=== PATIENT | female | born 1990 | race Caucasian/White ===

== ENCOUNTER 2020-07-31 08:01 | Outpatient (CLI) | payer BC ==
[2020-07-31 17:54] LABS: SARS-CoV-2 PCR by NAA Not Detected (NotDetected)
== END 2020-07-31 08:02 | disposition home or self-care (01) ==
LOC: CSHLAB 08:01
PROVIDERS: ATTEND Obstetrics & Gynecology
DX: Z20.822 Contact with and (suspected) exposure to COVID-19 (principal)
CPT/HCPCS: 87635; U0003; U0005

== ENCOUNTER 2024-03-10 01:26 | Day surgery (SDC) | payer BC ==
[2024-03-10 01:53] VITALS: BMI 30.1
[2024-03-10] MEDS ORDERED: hydrALAZINE 20 MG/ML VIAL SLOW IVP PRN (02:25)
[2024-03-10] MEDS: Morphine 4 MG/ML VIAL SLOW IVP SCH (02:44)
[2024-03-10 02:53] LABS: #Basophils 0.04 10x3/uL (0.0-0.2); #Eosinophils 0.13 10x3/uL (0.0-0.5); #Monocytes 0.65 10x3/uL (0.0-1.1); #Neutrophils 8.85 10x3/uL (1.5-8.4); %Basophils 0.4 % (0.0-2.0); %Eosinophils 1.2 % (0.0-6.0); %Lymphocytes 9.3 % (18.0-47.0); %Monocytes 6.1 % (0.0-10.0); %Neutrophils 82.6 % (40.0-75.0); Hematocrit 37.9 % (34.9-44.5); Hemoglobin 12.8 g/dL (12.0-15.5); Mean Corpuscular HGB CONC 33.8 g/dL (32.0-36.0); Mean Corpuscular Hemoglobin 30.3 pg (27.0-33.0); Mean Corpuscular Volume 89.8 fL (81.6-98.3); Mean Platelet Volume 9.3 fL (7.4-10.4); Platelet Count 224 10x3/uL (150-450); Red Blood Cell (RBC) Count 4.22 10x6/uL (3.90-5.03); White Blood Cell (WBC) Count 10.7 10x3/uL (3.5-10.5)
[2024-03-10 03:04] LABS: ALT (SGPT) 18 U/L (8-55); AST (SGOT) 18 U/L (5-34); Albumin 2.7 g/dL (3.5-5.0); Alkaline Phosphatase 91 U/L (40-110); Anion Gap 15 mmol/L (10-20); BUN (Urea Nitrogen) 6 mg/dL (7.0-18.7); Bilirubin, Total 0.4 mg/dL (0.2-1.2); Calc. Creatinine Clearance 158 mL/min (70-130); Calcium 8.4 mg/dL (7.8-10.44); Carbon Dioxide 18 mmol/L (22-29); Chloride 106 mmol/L (98-107); Estimated GFR 119; Globulin 3.9 g/dL (2.4-3.5); Glucose 100 mg/dL (70-105); Potassium 3.9 mmol/L (3.5-5.1); Protein, Total 6.6 g/dL (6.0-8.3); Sodium 135 mmol/L (136-145)
[2024-03-10] MEDS ORDERED: Lactated Ringer's 1,000 ML IV SCH (03:30)
[2024-03-10 03:31] LABS: Influenza A by NAA DETECTED (NotDetected); Influenza B by NAA Not Detected (NotDetected); SARS-CoV-2 NAA Rapid Test Not Detected (NotDetected)
== END 2024-03-10 04:19 | disposition home or self-care (01) ==
LOC: CSHLD/OP 01:26
PROVIDERS: ATTEND Obstetrics & Gynecology
DX: O99.891 Other specified diseases and conditions complicating pregnancy (principal); M54.9 Dorsalgia, unspecified; R03.0 Elevated blood-pressure reading, without diagnosis of hypertension; R68.83 Chills (without fever); O34.211 Maternal care for low transverse scar from previous cesarean delivery; O09.523 Supervision of elderly multigravida, third trimester; O99.513 Diseases of the respiratory system complicating pregnancy, third trimester; R09.89 Other specified symptoms and signs involving the circulatory and respiratory systems; Z3A.32 32 weeks gestation of pregnancy; Z87.59 Personal history of other complications of pregnancy, childbirth and the puerperium; Z79.899 Other long term (current) drug therapy
CPT/HCPCS: 71045; 80053; 85025; 96360; 99282; J2272